=== PATIENT | male | born 1990 | race African-American/Black ===

== ENCOUNTER 2018-04-04 14:59 | Inpatient (IN) ==
[2018-04-04 17:03] LABS: Bilirubin,Total 0.7 MG/DL (0.2-1.0); Calcium 9.2 MG/DL (8.5-10.1); Osmolality,Calculated 281.1 MOS/KG (273-304); Potassium 4.1 MMOL/L (3.5-5.1); Total Protein 7.3 G/DL (6.4-8.3)
[2018-04-04 17:09] LABS: PT Patient Result 10.7 SECS; Partial Thromboplastin Time 28.9 SECS (0-40)
[2018-04-04 17:16] LABS: CKMB % 0.4 %
[2018-04-04 17:17] LABS: Free T4 (Free Thyroxine) 0.74 NG/DL (0.76-1.46); Thyroid Stimulating Hormone 7.9 uIU/ml (0.358-3.74)
[2018-04-04 17:21] LABS: Basophils % 0.3 % (0.0-0.8); Eosinophils # 0.1 10*3/uL (0.0-0.87); Eosinophils % 1.3 % (0.00-10.9); Hematocrit 38.9 VOL% (42.0-52.0); Hemoglobin 11.3 GM/DL (14.0-18.0); Immature Granulocytes % 0.3 %; Immature Granulocytes Absolute 0.02 #; Lymphocytes # 2.2 10*3/uL (1.4-4.0); Lymphocytes % 37.4 % (21.2-54.2); Mean Corpuscular Hemoglobin 22 PG (27-34); Mean Corpuscular Volume 75.1 FL (87-102); Mean Platelet Volume 10.5 FL (9.6-12.0); Monocytes # 0.6 10*3/uL (0.11-0.8); Monocytes % 10.4 % (1.7-12.7); Neutrophils % 50.3 % (38.7-73.9); Platelet Count 234 T/CUMM (130-400); Red Blood Count 5.18 MC/CUMM (3.8-5.5); Red Cell Distribution Width 14.6 % (9.3-17.3)
[2018-04-04 17:22] LABS: Troponin I 0.117 NG/ML (0.00-0.045)
[2018-04-04] MEDS ORDERED: SODIUM CHLORIDE 0.9% 1,000 ML IV STA (17:42)
[2018-04-04 17:59] LABS: Apearance,Urine CLEAR (Clear); Bilirubin,Urine Negative (Negative); Blood, Urine Negative (Negative); Glucose,Urine (UA) Negative (Negative); Hyaline Casts,Urine 1 /LPF (0-3); Ketones,Urine Negative (Negative); Mucus,Urine Moderate /LPF (Occasional); Nitrite,Urine Negative (Negative); Protein,Urine Negative; RBC,Urine 2 /HPF (0-4); Urine Color Yellow (Yellow); Urine Specific Gravity 1.025 (1.001-1.035); WBC,Urine 1 /HPF (0-6)
[2018-04-04 18:46] LABS: Barbiturates Screen,Urine Negative (Negative); Benzodiazepines Screen,Urine Negative (Negative); Cannabinoid Screen,Urine Negative (Negative); Opiate Screen,Urine Negative (Negative); Phencyclidine Screen,Urine Negative (Negative)
[2018-04-04] MEDS ORDERED: ONDANSETRON 4 MG/2 ML VIAL IV PRN (20:38)
[2018-04-04] MEDS ORDERED: ENOXAPARIN 40 MG/0.4 ML SYRINGE SUBCUT SCH (21:00)
[2018-04-04] MEDS: CARVEDILOL 6.25 MG TABLET PO SCH (21:43)
[2018-04-04] MEDS: SODIUM CHLORIDE 0.9% 1,000 ML IV SCH (21:45)
[2018-04-04 21:48] LABS: CKMB % 0.3 %; Uric Acid 8.2 MG/DL (3.5-7.2)
[2018-04-05] MEDS: SODIUM CHLORIDE 0.9% 1,000 ML IV SCH (04:38)
[2018-04-05 04:58] LABS: Basophils % 0.2 % (0.0-0.8); Eosinophils # 0.1 10*3/uL (0.0-0.87); Eosinophils % 1.8 % (0.00-10.9); Hematocrit 36.1 VOL% (42.0-52.0); Immature Granulocytes % 0.4 %; Immature Granulocytes Absolute 0.02 #; Lymphocytes # 2.3 10*3/uL (1.4-4.0); Lymphocytes % 41.3 % (21.2-54.2); Mean Corpuscular HGB Conc 29.9 GM/DL (32-36); Mean Corpuscular Hemoglobin 23 PG (27-34); Mean Corpuscular Volume 75.1 FL (87-102); Mean Platelet Volume 10.1 FL (9.6-12.0); Monocytes # 0.5 10*3/uL (0.11-0.8); Monocytes % 8.4 % (1.7-12.7); Neutrophils # 2.6 10*3/uL (1.4-7.4); Neutrophils % 47.9 % (38.7-73.9); Platelet Count 206 T/CUMM (130-400); Red Blood Count 4.81 MC/CUMM (3.8-5.5); Red Cell Distribution Width 14.6 % (9.3-17.3); White Blood Count 5.5 T/CUMM (4-12)
[2018-04-05 05:06] LABS: Alanine Aminotransferase 37 U/L (16-61); Albumin 3.3 G/DL (3.4-5.0); Alkaline Phosphatase 81 U/L (45-117); Aspartate Amino Transferase 40 U/L (0-37); Blood Urea Nitrogen 13 MG/DL (7-18); Calcium 8.1 MG/DL (8.5-10.1); Cholesterol 147 MG/DL (50-200); Glucose 107 MG/DL (74-106); HDL Cholesterol 30 MG/DL (40-60); Osmolality,Calculated 280.3 MOS/KG (273-304); Potassium 3.6 MMOL/L (3.5-5.1); Sodium 141 MMOL/L (136-145); Total Protein 6.5 G/DL (6.4-8.3); Triglycerides 230 MG/DL (2-150)
[2018-04-05 05:08] LABS: Troponin I 0.122 NG/ML (0.00-0.045)
[2018-04-05 05:14] LABS: Hemoglobin 10.8 GM/DL (14.0-18.0)
[2018-04-05] MEDS ORDERED: LEVOTHYROXINE 200 MCG TABLET PO SCH (06:30)
[2018-04-05] MEDS ORDERED: LISINOPRIL/HCTZ 10-12.5 MG TABLET PO SCH (09:00)
[2018-04-05] MEDS ORDERED: PANTOPRAZOLE 40 MG TABLET PO SCH (09:00)
[2018-04-05] MEDS ORDERED: ASPIRIN EC 81 MG TABLET PO SCH (09:00)
[2018-04-05] MEDS: CARVEDILOL 6.25 MG TABLET PO SCH (09:29)
[2018-04-05] MEDS ORDERED: amLODIPine 10 MG TABLET PO SCH (11:00)
[2018-04-05 12:02] VITALS: BP 154/86
[2018-04-06] MEDS ORDERED: LEVOTHYROXINE 150 MCG TABLET PO SCH (06:30)
== END 2018-04-05 12:51 | disposition home or self-care (01) | DRG 558 ==
LOC: N.ED 14:59 → N.EDINP 19:45 → N.2E 20:37
PROVIDERS: ADMIT Internal Medicine; ATTEND Internal Medicine